=== PATIENT | male | born 1935 | race Caucasian/White ===

== ENCOUNTER → 2018-01-06 07:54 | Outpatient (CLI) | payer MEDICARE | END | disposition home or self-care (01) | LOC: D.CT 07:54 | DX: I65.23 Occlusion and stenosis of bilateral carotid arteries (principal) ==

== ENCOUNTER → 2020-02-03 09:32 | Outpatient (CLI) | payer MEDICARE | END | disposition home or self-care (01) | LOC: D.US 09:30 | PROVIDERS: ATTEND Family Medicine Adult Medicine | DX: R20.1 Hypoesthesia of skin (principal); M79.605 Pain in left leg; I10 Essential (primary) hypertension; E78.2 Mixed hyperlipidemia; N40.1 Benign prostatic hyperplasia with lower urinary tract symptoms; M25.552 Pain in left hip; Z68.21 Body mass index [BMI] 21.0-21.9, adult ==